=== PATIENT | male | born 1955 | race African-American/Black ===

== ENCOUNTER 2021-06-29 20:02 | Emergency (ER) | payer OTHER ==
[2021-06-29 20:10] VITALS: TEMP 98.1; BMI 23.3
[2021-06-29] MEDS ORDERED: DEXAMETHASONE LIQUID 0.5 MG/5 ML PO ONE (21:07)
[2021-06-29] MEDS ORDERED: guaiFENesin/D-METHORPHAN HB 10 ML UNIT-DOSE CUPS PO ONE (21:07)
[2021-06-29] MEDS ORDERED: DEXAMETHASONE SOD PHOSPHATE 10 MG/1 ML VIAL ONE (21:10)
[2021-06-29] MEDS ORDERED: guaiFENesin/D-METHORPHAN HB 10 ML UNIT-DOSE CUPS ONE (21:10)
[2021-06-29 21:53] VITALS: BP 161/92; PULSE 86
== END 2021-06-29 21:53 | disposition home or self-care (01) ==
LOC: JER 20:02
DX: R05.9 Cough, unspecified (principal)
CPT/HCPCS: 71046-TC-FY; 99284-25

== ENCOUNTER 2022-05-08 19:00 | Emergency (ER) | payer BC, OTHER ==
[2022-05-08 19:06] VITALS: BMI 23.3
[2022-05-08] MEDS ORDERED: ACETAMINOPHEN 1000 MG/100 ML BAG IVPB ONE (21:11)
[2022-05-08] MEDS ORDERED: ACETAMINOPHEN INJECTION 100 ML IVPB ONE (22:19)
[2022-05-08 22:43] LABS: BASO % 1.5 % (0-2.0); EOS % 3.4 % (0-4.5); HEMATOCRIT 40.2 % (35.4-49); HEMOGLOBIN 13.4 GM/dL (11.7-16.9); LYMPH % 45.6 % (8-40); MCH 27.8 pg (25.7-33.7); MCHC 33.2 g/dl (32.0-35.9); MEAN CELL VOLUME 83.6 fl (80-96); MEAN PLT VOLUME 9.1 fl (7.5-11.1); MONO % 9.4 % (3.8-10.2); NEUT % 40.1 % (42.8-82.8); PLATELET COUNT 134 10^3/uL (134-434); RBC 4.81 M/mm3 (4.00-5.60); RDW 14.2 % (11.9-15.9); WHITE BLOOD COUNT 4.6 K/mm3 (4.0-10.0)
[2022-05-08 23:07] LABS: CALCIUM 9.2 mg/dL (8.5-10.1)
[2022-05-08 23:08] LABS: ALBUMIN 3.6 g/dl (3.4-5.0)
[2022-05-08 23:11] LABS: CREATININE 1.2 mg/dL (0.55-1.3)
[2022-05-08 23:13] LABS: BILIRUBIN,TOTAL 0.4 mg/dL (0.2-1)
[2022-05-09 00:01] VITALS: TEMP 97.4
[2022-05-09] MEDS ORDERED: KETOROLAC TROMETHAMINE 15 MG/ML VIAL IVPUSH ONE (00:28)
[2022-05-09] MEDS ORDERED: KETOROLAC TROMETHAMINE 15 MG/ML VIAL ONE (01:04)
[2022-05-09 01:10] VITALS: BP 165/112; PULSE 82; RESP 18
== END 2022-05-09 01:29 | disposition home or self-care (01) ==
LOC: JER 19:00
PROC: 3E033NZ Introduction of Analgesics, Hypnotics, Sedatives into Peripheral Vein, Percutaneous Approach (ICD-10-PCS; principal; 2022-05-08)
PROC: 3E0333Z Introduction of Anti-inflammatory into Peripheral Vein, Percutaneous Approach (ICD-10-PCS; 2022-05-08)
DX: M54.12 Radiculopathy, cervical region (principal)
CPT/HCPCS: 36415; 71046-TC-FY; 80053; 84484; 85025; 93005; 93010; 99284-25